=== PATIENT | male | born 1970 | race Caucasian/White ===

== ENCOUNTER 2021-07-24 18:05 | Emergency (ER) | payer BC ==
[2021-07-24 18:17] VITALS: TEMP 98; BMI 28.3
[2021-07-24] MEDS ORDERED: ASPIRIN 81 MG CHEWABLE TABLETS PO ONE (18:25)
[2021-07-24 19:01] LABS: INR 1.08 (0.83-1.09); PROTHROMBIN TIME (PATIENT) 12.7 SEC (9.7-13.0)
[2021-07-24 19:04] LABS: ACTIVATED PTT 29.5 SECONDS (25.2-36.5)
[2021-07-24 19:10] LABS: BASO % 0.3 % (0-2.0); EOS % 2.3 % (0-4.5); HEMATOCRIT 44.5 % (35.4-49); HEMOGLOBIN 15.4 GM/dL (11.7-16.9); LYMPH % 34.4 % (8-40); MCH 31.4 pg (25.7-33.7); MCHC 34.5 g/dl (32.0-35.9); MEAN CELL VOLUME 90.8 fl (80-96); MEAN PLT VOLUME 9.7 fl (7.5-11.1); MONO % 9.9 % (3.8-10.2); NEUT % 53.1 % (42.8-82.8); PLATELET COUNT 147 10^3/uL (134-434); RDW 13.8 % (11.9-15.9); WHITE BLOOD COUNT 6.3 K/mm3 (4.0-10.0)
[2021-07-24 19:39] LABS: CALCIUM 8.6 mg/dL (8.5-10.1)
[2021-07-24 19:40] LABS: ALBUMIN 3.8 g/dl (3.4-5.0); BLOOD UREA NITROGEN 20.4 mg/dL (7-18); MAGNESIUM 2.2 mg/dL (1.8-2.4)
[2021-07-24 19:43] LABS: CREATININE 1.3 mg/dL (0.55-1.3)
[2021-07-24] MEDS ORDERED: ATORVASTATIN CA 80 MG TABLET (FP) PO ONE (19:43)
[2021-07-24] MEDS ORDERED: morphine CARPU-JECT 2 MG/1 ML DISP.SYRIN IVPUSH ONE (19:43)
[2021-07-24 19:44] LABS: BILIRUBIN,TOTAL 0.6 mg/dL (0.2-1); TOT PROT 7.5 g/dl (6.4-8.2)
[2021-07-24] MEDS ORDERED: TICAGRELOR 90 MG TABLET PO ONE (20:04)
[2021-07-24] MEDS ORDERED: METOPROLOL TARTRATE 25 MG TABLET (FP) PO ONE (20:20)
[2021-07-24] MEDS ORDERED: morphine SULFATE 4 MG/ML VIAL ONE (20:37)
[2021-07-24] MEDS ORDERED: METOPROLOL TARTRATE 25 MG TABLET (FP) ONE (20:38)
[2021-07-24] MEDS ORDERED: ATORVASTATIN CA 80 MG TABLET (FP) ONE (20:38)
[2021-07-24 20:44] VITALS: BP 154/108; PULSE 74
== END 2021-07-24 21:25 | disposition short-term general hospital (02) ==
LOC: JER 18:05
PROC: 3E033NZ Introduction of Analgesics, Hypnotics, Sedatives into Peripheral Vein, Percutaneous Approach (ICD-10-PCS; principal; 2021-07-24)
DX: R07.9 Chest pain, unspecified (principal); R79.89 Other specified abnormal findings of blood chemistry; R94.31 Abnormal electrocardiogram [ECG] [EKG]
CPT/HCPCS: 36415; 71045-TC-FY; 80053; 80061; 82550; 83735; 84436; 84443; 84484; 85025; 85610; 85730; 93005; 93010; 99291; C9803; U0003; U0005